=== PATIENT | male | born 1985 | race Two or more races ===

== ENCOUNTER 2025-02-10 23:10 | Emergency (ER) | payer MEDICAID, SELFPAY ==
--- NOTE | 2025-02-10 23:48 | PC.NURSE ---
SEEN LEAVING ER.
== END 2025-02-10 23:49 | disposition left against medical advice (07) ==
LOC: SERX 23:45
PROVIDERS: Emergency Provider Emergency Medicine
DX: Z53.21 Procedure and treatment not carried out due to patient leaving prior to being seen by health care provider (principal)
CPT/HCPCS: 99283

== ENCOUNTER 2025-02-14 20:54 | Emergency (ER) | payer MEDICAID, SELFPAY ==
[2025-02-14 20:54] VITALS: BMI 25.8
[2025-02-14 21:51] VITALS: BP 129/81; PULSE 98; RESP 18; TEMP 36.8; O2SAT 97
--- NOTE | 2025-02-14 22:03 | EDNOTE_ITS ---
<Statement entered by Talia Avendano MD - 02/15/25 01:01> As co-signing physician, I was present and available for consult prn. I concur with the plan and care as documented by the midlevel provider. ED General RME/HPI General Chief complaint: General Adult/Misc Complain Stated complaint: FEEL DEHYDRATED Time Seen by Provider: 02/14/25 20:57 Arrival date/time: 02/14/25 20:54 RME / HPI RME / HPI narrative: 39-year-old male presents to the ED with a complaint of feeling dehydrated and thought he would come here for hydration with saline. He states he has been drinking water, Gatorade and coffee. He denies any recent illness with fever, chills, cough, upper respiratory complaints, nausea or vomiting, diarrhea or abdominal pain. He denies any dysuria or frequency. He denies any decreased urinary output. He states his last urine was clear. Related Data Previous Rx's ?Medication ?Instructions ?Recorded cephalexin 500 mg capsule 500 mg PO TID #21 caps 09/02 clindamycin HCl 300 mg capsule 300 mg PO TID #20 caps 12/26/22 Allergies Allergy/AdvReac Type Severity Reaction Status Date / Time No Known Allergies Allergy Verified 02/14/25 20:54 Review of Systems Review of Systems Systems Reviewed: All systems reviewed, normal except as documented Past Medical History Past Medical History NEUROLOGIC: Negative Neurological Disorders CARDIAC: Negative Cardiac Disorders or Congestive Heart Failure RESPIRATORY: Negative Chronic Obstructive Pulmonary Disease (COPD) GENITOURINARY: Negative Renal Disease ENDOCRINE: Negative Diabetes Mellitus Type 1 or Diabetes Mellitus Type 2 PSYCHO/SOCIAL: Positive Schizophrenia, Depression and Anxiety Social History SMOKING STATUS: Current every day smoker ED Exam Narrative Physical exam: Alert and oriented 39-year-old male, no acute distress. Lungs are clear, regular rate and rhythm, abdomen is soft and nontender, bowel sounds present x 4 quadrants, no CVA tenderness, moist mucous membranes, moves all extremities well. Normal skin turgor. Course Course Course Narrative: Current vital signs blood pressure 129/81, pulse 98, pulse 18, temperature 98.2, O2 sat 97% on room air. Advised patient we will obtain a urinalysis to determine his level of hydration prior to obtaining labs or any IV hydration. Urinalysis reveals: Urinalysis reveals clear yellow urine with a specific gravity of 1.038 with 1+ protein, trace ketones, 1+ bilirubin, negative nitrites and negative leukocyte esterase. 3 RBCs, 6 WBCs, no bacteria is noted. Labs and IV fluids ordered due to evidence of mild dehydration on urinalysis. When nursing staff attempted to draw labs and insert an IV, patient refused any further treatment and ELOPED from the ED. Quality Measures none Orders Category Date Time Status IV [Insert IV] NOW Care 02/14/25 23:19 Active Alcohol, Blood Medical Stat Lab 02/14/25 23:19 Ordered CBC Stat Lab 02/14/25 23:19 Ordered Comprehensive Metabolic Panel Stat Lab 02/14/25 23:19 Ordered Drug Screen,Urine Stat Lab 02/14/25 23:20 Ordered Magnesium Stat Lab 02/14/25 23:19 Ordered Phosphorous Stat Lab 02/14/25 23:19 Ordered Urinalysis, C/S if Indicated Stat Lab 02/14/25 22:16 Completed Sodium Chloride 0.9% 1000 ml [Ns] 1,000 ml Med 02/14/25 23:19 Active IV 999 mls/hr Vital Signs Vital signs: Vital Signs Temperature 98.2 F 02/14/25 21:51 Pulse Rate 98 02/14/25 21:51 Respiratory Rate 18 02/14/25 21:51 Blood Pressure 129/81 02/14/25 21:51 Pulse Oximetry (%) 97 02/14/25 21:51 Oxygen Delivery Method Room Air 02/14/25 21:51 Discharge Plan Plan Patient Disposition: Elopement Prescriptions/Referrals Prescriptions/Med Rec: No Action cephalexin 500 mg capsule 500 mg PO TID Qty: 21 0RF clindamycin HCl 300 mg capsule 300 mg PO TID Qty: 20 0RF Referrals: No Primary/Family,Physician [Primary Care Provider] - In 1 week Problem List Clinical Impression: Dehydration, mild Patient/Caregiver Discharge Instructions Additional Instructions: Patient elopement Print Language: Tajik PA/LAUNDRY MARKER SUPERVISOR Supervising Physician PA/LAUNDRY MARKER SUPERVISOR Supervising Physician: Dr. Avendano [facility] Narrative [facility] hospital course: 39-year-old male presents to the ED with a complaint of feeling dehydrated and thought he would come here for hydration with saline. He states he has been drinking water, Gatorade and coffee. He denies any recent illness with fever, chills, cough, upper respiratory complaints, nausea or vomiting, diarrhea or abdominal pain. He denies any dysuria or frequency. He denies any decreased urinary output. He states his last urine was clear. Alert and oriented 39-year-old male, no acute distress. Lungs are clear, regular rate and rhythm, abdomen is soft and nontender, bowel sounds present x 4 quadrants, no CVA tenderness, moist mucous membranes, moves all extremities well. Current vital signs blood pressure 129/81, pulse 98, pulse 18, temperature 98.2, O2 sat 97% on room air. Advised patient we will obtain a urinalysis to determine his level of hydration prior to obtaining labs or any IV hydration. Urinalysis reveals: Urinalysis reveals clear yellow urine with a specific gravity of 1.038 with 1+ protein, trace ketones, 1+ bilirubin, negative nitrites and negative leukocyte esterase. 3 RBCs, 6 WBCs, no bacteria is noted. Labs and IV fluids ordered due to evidence of mild dehydration on urinalysis. When nursing staff attempted to draw labs and insert an IV, patient refused any further treatment and ELOPED from the ED. Clinical Information Provided by patient Medical Records Reviewed [facility] Meds/Rx Considered, not Ordered None Describe details: N/A Labs/Rad/Tests considered, not Ordered None Describe details: Labs and IV fluids ordered however patient refused the lab draw and IV start and eloped from the emergency department. Chronic Illness/Social Conditions which may negatively complicate care or outcome(s)-explain: Mental health EKG EKG not done Lab Interpretation Labs: interpreted by ne Lab(s) interpretation(s): Urinalysis as noted above Imaging Imaging interpretation: none Provider imaging interpretation(s): N/A Radiology reports / interpretation(s): N/A Medication Administration(s) none Medication Administration History Sodium Chloride (Ns) 1,000 mls @ 999 mls/hr IV .Q1H1M ONE Stop: 02/15/25 00:19 Ordered however, patient refused IV fluids. Diagnosis Differential diagnosis: Dehydration, electrolyte imbalance, UTI, infection Differential dx and/or dx ruled out: Unable Most likely dx, and/or detailed dx discussion: Unknown due to patient refusal of lab draw and IV fluids with patient elopement from the ED. Dispositon Disposition: other (Elopement) Disposition comments: Elopement
[2025-02-14 22:29] LABS: Collection Type, Urine Clean Catch
[2025-02-14 22:35] LABS: Bilirubin,Urine 1+ (Negative); Blood,Urine Negative (Negative); Clarity,Urine Clear (Clear/Hazy); Color,Urine Yellow (Lt Yel-Yel); Culture Indicated,Urine Not Indicated; Glucose, Urine Negative (Negative); Hyaline Casts,Urine 1 /hpf (0-1); Ketones,Urine Trace (Negative); Leukocyte Esterase,Urine Negative (Negative); Nitrite,Urine Negative (Negative); PH,Urine 6.0 (5.0-7.0); Protein,Urine 1+ (Neg - Trace); RBC,Urine 3 /hpf (0-3); Specific Gravity,Urine 1.038 (1.001-1.035); Squamous Epithelial Cell,Urine < 1 /hpf (0-5); Urobilinogen,Urine 3.0 mg/dL (0.0-1.0); WBC,Urine 6 /hpf (0-5)
[2025-02-14 23:49] VITALS: BP 136/81; PULSE 84; RESP 17; TEMP 36.6; O2SAT 99
== END 2025-02-15 00:24 | disposition left against medical advice (07) ==
PROVIDERS: Physician Assistant; Emergency Provider Emergency Medicine
DX: E86.0 Dehydration (principal); Z53.29 Procedure and treatment not carried out because of patient's decision for other reasons
CPT/HCPCS: 80053; 80307; 80320; 81001; 83735; 84100; 85025; G0480

== ENCOUNTER 2025-02-18 03:13 | Emergency (ER) | payer MEDICAID, SELFPAY ==
[2025-02-18 03:15] VITALS: BMI 25.8
[2025-02-18 03:28] VITALS: BP 145/89; PULSE 96; RESP 18; TEMP 36.6; O2SAT 98
--- NOTE | 2025-02-18 04:03 | PD.EDRECHK ---
ED Recheck Abnl Lab Rx-RME/HPI General Chief Complaint: General Adult/Misc Complain Stated Complaint: THINKS HE IS DEHYDRATED Time Seen by Provider: 02/18/25 03:34 Arrival date/time: 02/18/25 03:13 39M with history of psych/drugs presents to ED wanting IVF because he thinks he's dehydrated. Patient was here several days ago for this, but refused IVF initially. Patient changed his mind. Limitations: no limitations Related Data Previous Rx's ?Medication ?Instructions ?Recorded cephalexin 500 mg capsule 500 mg PO TID #21 caps 09/02/18 clindamycin HCl 300 mg capsule 300 mg PO TID #20 caps 12/26/22 Allergies Allergy/AdvReac Type Severity Reaction Status Date / Time No Known Allergies Allergy Verified 02/18/25 03:14 Review of Systems Review of Systems Systems Reviewed: All systems reviewed, normal except as documented Constitutional Constitutional: Reports system reviewed and no additional complaints, except as documented, Denies fever(s) and Denies headache(s) ENT Ears, Nose, Mouth, and Throat: Denies disequilibrium and Denies headache(s) Cardiovascular Cardiovascular: Reports system reviewed and no additional complaints, except as documented, Denies chest pain and Denies dyspnea Respiratory Respiratory: Reports system reviewed and no additional complaints, except as documented, Denies cough and Denies dyspnea Gastrointestinal Gastrointestinal: Reports system reviewed and no additional complaints, except as documented, Denies abdominal pain, Denies nausea and Denies vomiting Neurologic Neurologic: Reports system reviewed and no additional complaints, except as documented, Denies confusion, Denies disequilibrium and Denies headache(s) Psychiatric Psychiatric: Denies confusion Past Medical History Past Medical History NEUROLOGIC: Negative Neurological Disorders CARDIAC: Negative Cardiac Disorders or Congestive Heart Failure RESPIRATORY: Negative Chronic Obstructive Pulmonary Disease (COPD) GENITOURINARY: Negative Renal Disease ENDOCRINE: Negative Diabetes Mellitus Type 1 or Diabetes Mellitus Type 2 PSYCHO/SOCIAL: Positive Schizophrenia, Depression and Anxiety Social History SMOKING STATUS: Current every day smoker ED Exam General Limitations: Present no limitations General appearance: Present alert and in no apparent distress Head Head exam: Present atraumatic Eye Eye exam: Present normal appearance, PERRL and EOMI ENT ENT exam: Present normal exam, normal oropharynx and mucous membranes moist Neck Neck exam: Present normal inspection, full ROM and trachea midline Chest Chest inspection: Present normal inspection and symmetric chest wall rise Respiratory Respiratory exam: Present normal lung sounds bilaterally Cardiovascular Cardiovascular exam: Present regular rate, normal rhythm and normal heart sounds Abdominal Exam Abdominal exam: Present soft and normal bowel sounds Extremities Exam Extremities exam: Present normal inspection and full ROM Back Exam Back exam: Present normal inspection and full ROM Neurological Exam Neurological exam: Present alert, oriented X3 and CN II-XII intact Psychiatric Psychiatric exam: Present normal affect and normal mood Skin Skin exam: Present warm, dry, intact and normal color Course Quality Measures none Vital Signs Vital signs: Vital Signs Temperature 98 F 02/18/25 03:28 Pulse Rate 96 02/18/25 03:28 Respiratory Rate 18 02/18/25 03:28 Blood Pressure 145/89 H 02/18/25 03:28 Pulse Oximetry (%) 98 02/18/25 03:28 Oxygen Delivery Method Room Air 02/18/25 03:28 O2 at 98% on RA and WNLs Recheck / Abnormal Lab / Rx MDM Narrative MDM Narrative:: 39M with history of psych/drugs presents to ED wanting IVF because he thinks he's dehydrated. Patient was here several days ago for this, but refused IVF initially. Patient changed his mind. Physical exam reveals well-appearing male. Patient is afebrile, calm, and alert. Correspondence Dictator given. Labs reviewed from several days ago were all unremarkable. Patient data External records reviewed:: [facility] previous records Clinical information provided by:: patient Social determinants that could affect healthcare access:: substance use Patient has the following chronic illnesses:: psych/drug How is presenting disease/condition affected by chronic disease/condition?: exacerbated by Evaluation data The following diagnostics were reviewed and interpreted by me:: other (specify) (none) Lab and/or radiology exams considered but not ordered:: not ordered Interpretation Summary: n/a Medications / Prescriptions Medications or Prescriptions considered but not ordered:: not ordered Medication administrations:: n/a Consultations Consultation(s) initiated? (list below): No Diagnosis Recheck Differential Diagnosis: encounter for medication refill, encounter for wound recheck, encounter for recheck of burn, encounter for removal of sutures, warfarin-induced coagulopathy and other (mild dehydration) Most likely diagnosis given after review of the tests above:: mild dehydration Admission Indicated Admission indicated?: not indicated Admission Request Was there a request for admission?: No Disposition Plan Disposition Plan: Discharge Discharge Attestation Discharge Attestation: The patient and all family members were given an opportunity to ask questions and understood the discharge instructions. Discharge instructions specifically effects, indications for sooner follow up or return to the emergency department, and the expected course of current diagnosis. Patient condition: Stable Discharge Plan Plan Patient Disposition: HOME (Self Care) Discharge Disposition comment: Stable Prescriptions/Referrals Prescriptions/Med Rec: No Action cephalexin 500 mg capsule 500 mg PO TID Qty: 21 0RF clindamycin HCl 300 mg capsule 300 mg PO TID Qty: 20 0RF Problem List Clinical Impression: Dehydration, mild Patient/Caregiver Discharge Instructions Education Materials: ED Dehydration (Adult) Additional Instructions: Please follow-up with PCP within 24-48 hours and return immediately if symptoms worsen. Keep hydrated. Advance diet as tolerated. Print Language: Tanzanian Stand Alone Forms: Patient Portal Info Letter MALKA/MARINE Supervising Physician MALKA/MARINE Supervising Physician: Dr. Alonzo
== END 2025-02-18 03:46 | disposition home or self-care (01) ==
LOC: SERX 03:46
PROVIDERS: Emergency Provider Emergency Medicine; PCP Family Medicine
DX: E86.0 Dehydration (principal)
CPT/HCPCS: 99283

== ENCOUNTER 2025-05-28 22:19 | Emergency (ER) | payer MEDICAID, SELFPAY ==
--- NOTE | 2025-05-28 22:23 | XR_ITS ---
Examination: Wrist, left 3 views Technique: Wrist AP, oblique, lateral 3 views Date and time of exam: May 28, 2025 10:30 p.m. INDICATIONS: Injury to the wrist 20 years ago with persistent pain. FINDINGS: Mild narrowing radiocarpal joint No fracture or dislocation No avascular necrosis IMPRESSION: No fracture or dislocation No avascular necrosis
[2025-05-28 22:49] VITALS: BP 136/82; PULSE 85; RESP 18; TEMP 36.7; O2SAT 100
--- NOTE | 2025-05-28 23:20 | EDNOTE_ITS ---
Upper Extremity Injury RME/HPI General Chief Complaint: Hand/Wrist Problems Stated Complaint: L WRIST PAIN Time Seen by Provider: 05/28/25 22:57 Arrival date/time: 05/28/25 22:19 39M with history of psych presents to ED with L wrist pain/swelling w/o fall/trauma. Patient broke that wrist several years ago. Limitations: no limitations Related Data Previous Rx's ?Medication ?Instructions ?Recorded cephalexin 500 mg capsule 500 mg PO TID #21 caps 09/02 clindamycin HCl 300 mg capsule 300 mg PO TID #20 caps 12/26/22 Allergies Allergy/AdvReac Type Severity Reaction Status Date / Time No Known Allergies Allergy Verified 05/28/25 22:23 Review of Systems Review of Systems Systems Reviewed: All systems reviewed, normal except as documented Musculoskeletal Musculoskeletal: Reports as per HPI, Reports arthralgias and Reports joint swelling Past Medical History Past Medical History NEUROLOGIC: Negative Neurological Disorders CARDIAC: Negative Cardiac Disorders or Congestive Heart Failure RESPIRATORY: Negative Chronic Obstructive Pulmonary Disease (COPD) GENITOURINARY: Negative Renal Disease ENDOCRINE: Negative Diabetes Mellitus Type 1 or Diabetes Mellitus Type 2 PSYCHO/SOCIAL: Positive Schizophrenia, Depression and Anxiety Social History SMOKING STATUS: Current every day smoker ED Exam General Limitations: Present no limitations General appearance: Present alert and in no apparent distress Head Head exam: Present atraumatic Neck Neck exam: Present normal inspection, full ROM and trachea midline Chest Chest inspection: Present normal inspection and symmetric chest wall rise Extremities Exam Extremities exam: Present full ROM Expanded Upper Extremity Exam Forearm/Wrist exam: Present full ROM (L) and swelling Neurological Exam Neurological exam: Present alert and oriented X3 Psychiatric Psychiatric exam: Present normal affect and normal mood Skin Skin exam: Present warm, dry, intact and normal color Course Quality Measures none Orders Category Date Time Status XR wrist comp LT min 3V Stat Exams 05/28/25 22:23 Completed Naproxen [Naprosyn] Med 05/28/25 22:58 Discontinued 500 mg PO X1 ONE Vital Signs Vital signs: Vital Signs Temperature 98.0 F 05/28/25 22:49 Pulse Rate 85 05/28/25 22:49 Respiratory Rate 18 05/28/25 22:49 Blood Pressure 136/82 H 05/28/25 22:49 Pulse Oximetry (%) 100 05/28/25 22:49 Oxygen Delivery Method Room Air 05/28/25 22:49 O2 at 100% on RA and WNLs Extremity Injury MDM Narrative MDM Narrative:: 39M with history of psych presents to ED with L wrist pain/swelling w/o fall/trauma. Patient broke that wrist several years ago. Physical exam reveals normal ROM of L wrist. Some swelling, but no redness. Patient has brace on. Patient is afebrile, calm, and alert. Patient data External records reviewed:: [facility] previous records Clinical information provided by:: patient Social determinants that could affect healthcare access:: mental health Patient has the following chronic illnesses:: psych How is presenting disease/condition affected by chronic disease/condition?: exacerbated by Evaluation data The following diagnostics were reviewed and interpreted by me:: radiology exam(s) Lab and/or radiology exams considered but not ordered:: ordered Interpretation Summary: above Medications / Prescriptions Medications or Prescriptions considered but not ordered:: ordered Medication administrations:: Medication Administration History Discontinued Medications Naproxen (Naproxen 250 Mg Tablet) 500 mg PO X1 ONE Stop: 05/28/25 22:59 Last Admin: 05/29/25 00:25 Dose: 500 mg Documented By: AUTUMN above Consultations Consultation(s) initiated? (list below): No Diagnosis Upper Extremity Injury Differential Diagnosis: sprain and strain of wrist, fracture of wrist, finger sprain, dislocation of finger, Colles' fracture, fracture of hand and other (joint swelling/pain, gout) Most likely diagnosis given after review of the tests above:: joint pain Admission Indicated Admission indicated?: not indicated Admission Request Was there a request for admission?: No Disposition Plan Disposition Plan: Discharge Discharge Attestation Discharge Attestation: The patient and all family members were given an opportunity to ask questions and understood the discharge instructions. Discharge instructions specifically effects, indications for sooner follow up or return to the emergency department, and the expected course of current diagnosis. Patient condition: Stable Discharge Plan Plan Patient Disposition: HOME (Self Care) Discharge Disposition comment: Stable Prescriptions/Referrals Prescriptions/Med Rec: No Action cephalexin 500 mg capsule 500 mg PO TID Qty: 21 0RF clindamycin HCl 300 mg capsule 300 mg PO TID Qty: 20 0RF Referrals: No Primary/Family,Physician [Primary Care Provider] - In 1 week Problem List Clinical Impression: Joint pain Patient/Caregiver Discharge Instructions Education Materials: ED Arthralgia Additional Instructions: Please follow-up with PCP within 24-48 hours and return immediately if symptoms worsen. If problem persists, recommend outpatient PT and/or MRI follow-up. In the meantime, rest, use ice/heat, and/or compression. Print Language: Ethiopian Stand Alone Forms: Patient Portal Info Letter PA/MEDICAL INFORMATION SPECIALIST Supervising Physician PA/MEDICAL INFORMATION SPECIALIST Supervising Physician: Dr. Cerda
[2025-05-29] MEDS: NAPROXEN 250 MG TABLET 500 MG PO (00:25)
== END 2025-05-29 01:20 | disposition home or self-care (01) ==
PROVIDERS: Emergency Provider Emergency Medicine
DX: M25.532 Pain in left wrist (principal)
CPT/HCPCS: 73110; 99282; A9270

== ENCOUNTER 2025-07-21 18:09 | Emergency (ER) | payer MEDICAID, SELFPAY ==
[2025-07-21 18:50] VITALS: BP 131/77; PULSE 76; RESP 18; TEMP 36.8; O2SAT 97; BMI 25.9
--- NOTE | 2025-07-21 19:12 | EDNOTE_ITS ---
ED General RME/HPI General Chief complaint: General Adult/Misc Complain Stated complaint: LARGE SWOLLEN AREA MID-STERNUM, PAINFUL 5/10 Time Seen by Provider: 07/21/25 18:59 Arrival date/time: 07/21/25 18:09 39-year-old male patient with no past medical history, came in for evaluation regarding redness and swelling to the anterior mid sternum. Onset of symptoms about 3 days ago. Severity of symptoms mild. Denies any fever denies any other complaints no medication was taken prior to ER visit. Related Data Previous Rx's ?Medication ?Instructions ?Recorded cephalexin 500 mg capsule 500 mg PO TID #21 caps 09/02 clindamycin HCl 300 mg capsule 300 mg PO TID #20 caps 12/26/22 ibuprofen 800 mg tablet 800 mg PO Q8H PRN pain #30 t abs 07/21/25 sulfamethoxazole 800 1 tab PO BID #14 tabs mg-trimethoprim 160 mg tablet (Bactrim DS) Allergies Allergy/AdvReac Type Severity Reaction Status Date / Time No Known Allergies Allergy Verified 07/21/25 18:12 Review of Systems Review of Systems Narrative Review of Systems: Review of system reviewed and within normal limits except mentioned in HPI ED Exam Narrative Physical exam: VITAL SIGNS: Reviewed. GENERAL APPEARANCE: Alert and interactive, follows commands, no acute distress, HEAD AND FACE: Non-traumatic. ENT: PERRL, pink conjunctivitis, eyelid no trauma, Mucous membrane moist. NECK: Supple, nontender, no nuchal rigidity. CHEST: +2x2 cm redness, swelling, fluctuant, mid sternum anterior + tenderness, no crepitus, no paradoxical movement, no retractions. LUNGS: Clear, well ventilated, symmetric, no rales, no wheezing, no ronchi, no stridor, good breath sounds bilaterally. HEART: Regular rate, regular rhythm, no murmur, no gallops. ABDOMEN: Soft, positive bowel sounds, nondistended, no guarding, nontender, no rebound, no masses, RECTAL: Deferred. GENITAL: Deferred. NEUROLOGICAL: Gross motor function intact sensory function intact, Appropriate for age. MUSCULOSKELETAL: low back nontender, full range of motion. EXTREMITIES: Nontender, full range of motion. SKIN: Color pink, dry, no rash, no lacerations, no abrasions, no contusions. LYMPHATICS: Deferred. Course Quality Measures none Orders Category Date Time Status Ibuprofen Tab [Motrin Tab] Med 07/21/25 19:12 Discontinued 800 mg PO X1 ONE Lidocaine 1% Vial 20 ml [Xylocaine 1% 20 ML] Med 07/21/25 19:12 Discontinued 10 ml INFL X1 ONE Trimethoprim/Sulfa 160/800 Ds [Bactrim Ds] Med 07/21/25 19:12 Discontinued 1 tab PO X1 ONE Vital Signs Vital signs: Vital Signs Temperature 98.3 F 07/21/25 18:50 Pulse Rate 76 07/21/25 18:50 Respiratory Rate 18 07/21/25 18:50 Blood Pressure 131/77 H 07/21/25 18:50 Pulse Oximetry (%) 97 07/21/25 18:50 Oxygen Delivery Method Room Air 07/21/25 18:50 PROCEDURES: Abscess I/D Site: chest Sedation/analgesia: none Local Anesthetic: lidocaine 1% Amount of anesthesia used (mL): 3 Technique: incised with #11 blade Amount of fluid expressed (mL): 2 Irrigation: Yes Packing used?: none Complications: other Discharge Plan Plan Patient Disposition: HOME (Self Care) Discharge Disposition comment: Stable Prescriptions/Referrals Prescriptions/Med Rec: New sulfamethoxazole-trimethoprim [Bactrim DS] 800-160 mg tablet 1 tab PO BID Qty: 14 0RF ibuprofen 800 mg tablet 800 mg PO Q8H PRN (Reason: pain) Qty: 30 0RF No Action cephalexin 500 mg capsule 500 mg PO TID Qty: 21 0RF clindamycin HCl 300 mg capsule 300 mg PO TID Qty: 20 0RF Referrals: No Primary/Family,Physician [Primary Care Provider] - In 1 week Problem List Clinical Impression: Infected sebaceous cyst Patient/Caregiver Discharge Instructions Discharge Activity: activity as tolerated Education Materials: Epidermoid Cyst Infect Antibiotics Additional Instructions: Thank you for the opportunity for serving you today. You are stable for discharged . You are advised to: Follow-up with your PCP in 1 to 2 days Return to ED for worsening of symptoms Increase oral fluids Take medication as prescribed Daily dressing with bacitracin as needed Print Language: Armenian Stand Alone Forms: Swati Award Info., Patient Portal Info Letter PA/SPECIAL DELIVERY MESSENGER Supervising Physician MALKA/SPECIAL DELIVERY MESSENGER Supervising Physician: MD Mita MDM Narrative MDM hospital course (for use when minimal MDM required): 39-year-old male patient with no past medical history, came in for evaluation regarding redness and swelling to the anterior mid sternum. Onset of symptoms about 3 days ago. Severity of symptoms mild. Denies any fever denies any other complaints no medication was taken prior to ER visit. Incision and drainage was done by me see procedure notes patient received Bactrim and Motrin in the emergency room Stable for discharged home Medication Administration(s) Medication Administration History Discontinued Medications Ibuprofen (Ibuprofen Tab 400 Mg Tablet) 800 mg PO X1 ONE Stop: 07/21/25 19:13 Lidocaine HCl (Lidocaine Hcl 1% 20 Ml Vial) 10 ml INFL X1 ONE Stop: 07/21/25 19:13 Trimethoprim/Sulfamethoxazole (Trimethoprim/Sulfa 160/800 Ds Tablet) 1 tab PO X1 ONE Stop: 07/21/25 19:13 Diagnosis Differential Diagnosis ED Complaint MDM: Skin abscess, infected sebaceous cyst, infected epidermoid cyst Diagnoses ruled out and/or further discussions: Infected sebaceous cyst
[2025-07-21] MEDS: LIDOCAINE HCL 1% 20 ML VIAL 10 ML INFL (19:55)
[2025-07-21] MEDS: TRIMETHOPRIM/SULFA 160/800 DS TABLET 1 TAB PO (19:55)
[2025-07-21] MEDS: IBUPROFEN TAB 400 MG TABLET 800 MG PO (19:55)
== END 2025-07-21 20:22 | disposition home or self-care (01) ==
PROVIDERS: Emergency Provider Emergency Medicine
DX: L72.3 Sebaceous cyst (principal)
CPT/HCPCS: 10060; 99281; J3490; A9270